=== PATIENT | male | born 1980 | race American Indian/Alaskan Native ===

== ENCOUNTER 2019-01-31 15:33 | Emergency (ER) | payer SELFPAY ==
[2019-01-31 16:05] VITALS: BP 139/57
[2019-01-31] MEDS ORDERED: LIDOCAINE VISCOUS 2% 15 ML ORAL LIQD MM NR (19:15)
--- NOTE | 2019-01-31 19:17 | Emergency Department Report ---
ED ENT HPI - General Chief complaint: Dental/Oral Stated complaint: SWELLING/FACE PAIN Time Seen by Provider: 01/31/19 18:49 Source: patient Mode of arrival: Ambulatory Limitations: No Limitations - History of Present Illness Initial comments: This is a pleasant 38 yo male who presents to the Ed with a chief complaint of left upper dental pain for the past week. He reports pain is worse with palpation and chewing. he denies any alleviating factors. pain radiates to neck and up to left ear. He denies fever, chills, night sweats, dizzienss, headache, weakness or any other related symptoms. - Related Data Previous Rx's Medication Instructions Recorded Last Taken Type Ibuprofen [Motrin] 800 mg PO Q8HR PRN #15 tablet 08/27/15 Unknown Rx Sulfamethoxazole/Trimethoprim 1 each PO BID #20 tablet 08/27/15 Unknown Rx [Bactrim DS TAB] Acetaminophen with Codeine 1 each PO Q6HR PRN 2 Days #8 tablet 01/31/19 Unknown Rx [Acetaminophen-Codeine #2 TAB] Penicillin V Potassium 500 mg PO QID 10 Days #40 tablet 01/31/19 Unknown Rx Allergies Allergy/AdvReac Type Severity Reaction Status Date / Time No Known Allergies Allergy Unverified 08/27/15 12:46 ED Dental HPI - General Chief complaint: Dental/Oral Stated complaint: SWELLING/FACE PAIN Time Seen by Provider: 01/31/19 18:49 Source: patient Mode of arrival: Ambulatory Limitations: No Limitations - Related Data Previous Rx's Medication Instructions Recorded Last Taken Type Ibuprofen [Motrin] 800 mg PO Q8HR PRN #15 tablet 08/27/15 Unknown Rx Sulfamethoxazole/Trimethoprim 1 each PO BID #20 tablet 08/27/15 Unknown Rx [Bactrim DS TAB] Acetaminophen with Codeine 1 each PO Q6HR PRN 2 Days #8 tablet 01/31/19 Unknown Rx [Acetaminophen-Codeine #2 TAB] Penicillin V Potassium 500 mg PO QID 10 Days #40 tablet 01/31/19 Unknown Rx Allergies Allergy/AdvReac Type Severity Reaction Status Date / Time No Known Allergies Allergy Unverified 08/27/15 12:46 ED Review of Systems ROS: Stated complaint: SWELLING/FACE PAIN Other details as noted in HPI Constitutional: denies: chills, fever Eyes: denies: eye pain, eye discharge, vision change ENT: dental pain. denies: ear pain, throat pain Respiratory: denies: cough, shortness of breath, wheezing Cardiovascular: denies: chest pain, palpitations Endocrine: no symptoms reported Gastrointestinal: denies: abdominal pain, nausea, diarrhea Genitourinary: denies: urgency, dysuria Musculoskeletal: denies: back pain, joint swelling, arthralgia Skin: denies: rash, lesions Neurological: denies: headache, weakness, paresthesias Psychiatric: denies: anxiety, depression Hematological/Lymphatic: denies: easy bleeding, easy bruising ED Past Medical Hx - Past Medical History Previous Medical History?: No - Surgical History Past Surgical History?: No - Social History Smoking Status: Current Every Day Smoker Substance Use Type: None - Medications Home Medications: Home Medications Medication Instructions Recorded Confirmed Last Taken Type Ibuprofen [Motrin] 800 mg PO Q8HR PRN #15 tablet 08/27/15 Unknown Rx Sulfamethoxazole/Trimethoprim 1 each PO BID #20 tablet 08/27/15 Unknown Rx [Bactrim DS TAB] Acetaminophen with Codeine 1 each PO Q6HR PRN 2 Days #8 tablet 01/31/19 Unknown Rx [Acetaminophen-Codeine #2 TAB] Penicillin V Potassium 500 mg PO QID 10 Days #40 tablet 01/31/19 Unknown Rx ED Physical Exam - General Limitations: No Limitations General appearance: alert, in no apparent distress - Head Head exam: Present: atraumatic, normocephalic - Eye Eye exam: Present: normal appearance - ENT ENT exam: Present: mucous membranes moist, other (multiple caries abscess seen above tooth 14. no crepitus, trismus or tracking. ) - Neck Neck exam: Present: normal inspection - Respiratory Respiratory exam: Present: normal lung sounds bilaterally. Absent: respiratory distress - Cardiovascular Cardiovascular Exam: Present: regular rate, normal rhythm. Absent: systolic murmur, diastolic murmur, rubs, gallop - GI/Abdominal GI/Abdominal exam: Present: soft, normal bowel sounds - Rectal Rectal exam: Present: deferred - Extremities Exam Extremities exam: Present: normal inspection - Back Exam Back exam: Present: normal inspection - Neurological Exam Neurological exam: Present: alert, oriented X3 - Psychiatric Psychiatric exam: Present: normal affect, normal mood - Skin Skin exam: Present: warm, dry, intact, normal color. Absent: rash ED Course Vital Signs 01/31/19 16:04 Temperature 98.8 F Pulse Rate 76 Respiratory 18 Rate Blood Pressure 139/57 O2 Sat by Pulse 97 Oximetry - I & D Left Upper Jaw Type of Procedure: Simple Site: periapical above tooth 14 Blade Size: 18G needle Progress: patient was anestatised with viscous lidocaine. 18 G needle introduced into fluctuant area and copious drainage removed from abscess. Patient tolerated well. No complications. ED Medical Decision Making - Medical Decision Making Patient presented with dental pain and obvious abscess. He needle aspiration was preformed and copious purulent drainage aspirated. He tolerated this well and pain improved after procedure. i will treat with penicillin VK 500mg PO QID x 10 days and tylenol #3 for pain. Patient given follow up with dentist and return precautions for changing or worsening symptoms. - Differential Diagnosis dental abscess, dental fracture, cellulitis Critical care attestation.: If time is entered above; I have spent that time in minutes in the direct care of this critically ill patient, excluding procedure time. ED Disposition Clinical Impression: Dental abscess Disposition: TO HOME OR SELFCARE Is pt being admited?: No Does the pt Need Aspirin: No Condition: Stable Instructions: Dental Abscess (ED) Prescriptions: Acetaminophen with Codeine [Acetaminophen-Codeine #2 TAB] 1 each PO Q6HR PRN 2 Days #8 tablet PRN Reason: Pain Penicillin V Potassium 500 mg PO QID 10 Days #40 tablet Forms: Work/School Release Form(ED) Time of Disposition: 19:19
== END 2019-01-31 19:00 | disposition home or self-care (01) ==
LOC: ED 15:33
DX: K04.7 Periapical abscess without sinus (principal); F17.200 Nicotine dependence, unspecified, uncomplicated